=== PATIENT | male | born 1965 | race Caucasian/White ===

== ENCOUNTER 2024-02-20 08:39 | Day surgery (SDC) | payer OTHER ==
[~2024-02-20] VITALS: Ht 172.7 cm; Wt 106.1 kg
[~2024-02-20 08:39] MED LIST: AMLO5 PO; ATOR40TA PO; Aspir 8181 MG PO; FENOFIBRATE43 MG PO; GLIP5ER PO; LOSA50 PO; MELO7.5 PO; METF500C PO
[2024-02-20 09:06] VITALS: BP 149/117
[2024-02-20] MEDS ORDERED: NS 100 ML IV ONE (10:39)
[2024-02-20] MEDS ORDERED: NS 1,000 ML IV ONE ×2 (10:41→10:56)
[2024-02-20] MEDS ORDERED: Heparin Sodium 1000 Units/ML 10ML MDV ONE ×2 (10:41→10:56)
[2024-02-20] MEDS ORDERED: Verapamil HCL 2.5 MG/ML 2ML Injection ONE (10:42)
[2024-02-20] MEDS ORDERED: Nitroglycerin 2 MG/20 ML BTL ONE (10:42)
[2024-02-20] MEDS ORDERED: NS 250 ML IV ONE (10:43)
[2024-02-20] MEDS ORDERED: Midazolam HCl 1MG / ML 2ML Vial ONE ×2 (10:55→11:47)
[2024-02-20] MEDS ORDERED: FentaNYL Citrate 50 MCG/ML 2 ML Injection ONE ×3 (10:56→12:28)
[2024-02-20] MEDS ORDERED: HydrALAZINE HCl 20 MG / ML 1ML Vial ONE (11:58)
[2024-02-20] MEDS ORDERED: Labetalol HCL 5 MG/ML 4ML Injection (Single Dose) ONE (12:08)
[2024-02-20] MEDS ORDERED: Ketorolac Tromethamine 30mg Vial ONE (12:19)
--- NOTE | 2024-02-20 13:00 | NUR ---
PATIENT ARRIVED TO RECOVERY ROOM WITH HOB FLAT. RIGHT PEDAL ACCESS AND LEFT GROIN ACCESS C/D/I, SOFT/NONTENDER, NO EVIDENCE OF BLEEDING. VSS ON RA.
[2024-02-20 13:04] VITALS: BP 118/76
[2024-02-20 13:22] VITALS: BP 148/64
[2024-02-20 13:30] VITALS: BP 133/76
--- NOTE | 2024-02-20 13:51 | NUR ---
HOB ELEVATED 30 DEGREES. LEFT GROIN SITE C/D/I SOFT/NONTENDER, NO EVIDENCE OF BLEEDING. RIGHT FOOT C/D/I. VSS ON RA. PATIENT TOLERATING PO INTAKE WELL.
[2024-02-20 14:00] VITALS: BP 117/90
[2024-02-20 14:30] VITALS: BP 135/100
--- NOTE | 2024-02-20 14:35 | NUR ---
PATIENT STANDING AND AMBULATING TO RESTROOM AT BASELINE. LEFT GROIN SITE C/D/I SOFT/NONTENDER, NO EVIDENCE OF BLEEDING. RIGHT FOOT DRESSING DRY AND INTACT. VSS ON RA. PATIENT TOLERATING PO INTAKE WELL.
--- NOTE | 2024-02-20 14:37 | NUR ---
DISCAHRGE INSTRUCTIONS REVIEWED WITH PATIENT AND MOTHER AT BEDSIDE. ALL QUESTIONS WERE ANSWERED. PIV REMOVED WITHOUT DIFFICULTY, CATHETER ITNACT
--- NOTE | 2024-02-20 14:45 | NUR ---
PATIENT DISCHARGED HOME AT THIS TIME. LEFT GROIN SITE AND RIGHT FOOT SITE C/D/I SOFT/NONTENDER, NO EVIDENCE OF BLEEDING. VSS ON RA. PATIENT WHEELED TO HOSPITAL ENTRANCE AND MOTHER ABLE TO PROVIDE TRANSPORTATION HOME
== END 2024-02-20 23:00 | disposition home or self-care (01) ==
LOC: MHTC 08:39
DX: E11.51 Type 2 diabetes mellitus with diabetic peripheral angiopathy without gangrene (principal); I10 Essential (primary) hypertension; E78.5 Hyperlipidemia, unspecified; Z79.82 Long term (current) use of aspirin; Z79.84 Long term (current) use of oral hypoglycemic drugs; Z87.891 Personal history of nicotine dependence
CPT/HCPCS: 76937; 99152; 99153; C1760; C1769; C1887; C1894; J0360; J1644; J1885; J2250; J3010; J7030; J7050; Q9967